=== PATIENT | male | born 1980 | race Caucasian/White ===

== ENCOUNTER 2016-11-21 07:17 | Emergency (ER) | payer BC ==
[2016-11-21 07:32] VITALS: BP 130/75
--- NOTE | 2016-11-21 07:46 | UC ---
Throat Pain/Nasal Keanu HPI - HPI Summary HPI Summary: sore throat x 3 days + nasal congestion, cough, pnd , sinus pressure no fever, no chills - History of Current Complaint Chief Complaint: UCRespiratory Stated Complaint: SINUS COMPLAINT Time Seen by Provider: 11/21/16 07:37 Hx Obtained From: Patient Onset/Duration: Gradual Onset, Lasting Days - 3, Still Present Severity: Moderate Cough: Nonproductive Associated Signs & Symptoms: Positive: Sinus Discomfort, Nasal Discharge. Negative: Wheezing, Fever, Vomiting, Rash - Allergies/Home Medications Allergies/Adverse Reactions: Allergies Allergy/AdvReac Type Severity Reaction Status Date / Time No Known Allergies Allergy Verified 11/21/16 07:26 Home Medications: Home Medications NK [No Home Medications Reported] 11/21/16 [History Confirmed 11/21/16] PMH/Surg Hx/FS Hx/Imm Hx Previously Healthy: Yes - Surgical History Surgical History: None - Family History Known Family History: Negative: Diabetes - Social History Alcohol Use: Occasionally Alcohol Amount: 1xmonth Substance Use Type: None Smoking Status (MU): Never Smoked Tobacco - Immunization History Most Recent Influenza Vaccination: NONE Most Recent Tetanus Shot: UTD Most Recent Pneumonia Vaccination: NONE Review of Systems Constitutional: Negative Skin: Negative Eyes: Negative ENT: Sore Throat, Ear Ache, Nasal Discharge Respiratory: Cough Cardiovascular: Negative Gastrointestinal: Negative All Other Systems Reviewed And Are Negative: Yes Physical Exam Triage Information Reviewed: Yes Appearance: Well-Appearing, No Pain Distress, Well-Nourished Vital Signs: Initial Vital Signs Temp 97.4 F 11/21/16 07:27 Pulse 65 11/21/16 07:27 Resp 16 11/21/16 07:27 BP 130/75 11/21/16 07:27 Pulse Ox 98 11/21/16 07:27 Vital Signs Reviewed: Yes Eyes: Positive: Conjunctiva Clear ENT: Positive: Normal ENT inspection, Hearing grossly normal, Pharyngeal erythema, Nasal congestion, Nasal drainage, TMs normal Neck: Positive: Supple, Nontender, No Lymphadenopathy Respiratory: Positive: Chest non-tender, Lungs clear, Normal breath sounds Cardiovascular: Positive: RRR, No Murmur, Pulses Normal Abdominal Exam: Normal Skin Exam: Normal Throat Pain/Nasal Course/Dx - Differential Dx/Diagnosis Provider Diagnoses: uri Discharge - Discharge Plan Condition: Stable Disposition: HOME Patient Education Materials: Upper Respiratory Infection (ED) Forms: *Work Release
== END 2016-11-21 07:46 | disposition home or self-care (01) ==
LOC: UCCORT 07:17
DX: J06.9 Acute upper respiratory infection, unspecified (principal)
CPT/HCPCS: 99201; G0463

== ENCOUNTER 2017-11-26 11:03 | Emergency (ER) | payer BC ==
[2017-11-26 11:51] VITALS: BP 139/72
--- NOTE | 2017-11-26 12:26 | UC ---
Complaint Male HPI - HPI Summary HPI Summary: 36 yo male with 2-2 1/2 week hx of left LQ /groin and flank pain the pain has been constant and waxes and wane pain radiates to left testicle at times was examined by his MD early this month and nothing abnormal found no n/v/d no urethral d/c no f/c no change in bowel habits - History of Current Complaint Chief Complaint: UCGU Stated Complaint: URINARY COMP Time Seen by Provider: 11/26/17 12:12 Hx Obtained From: Patient Onset/Duration: Gradual Onset, Lasting Weeks Timing: Constant Severity Initially: Mild Severity Currently: Moderate Pain Intensity: 5 Pain Scale Used: 0-10 Numeric Location: Groin - LL Radiates to: LLQ abd/Left flank/left testicle Character: Colicy Aggravating Factor(s): Nothing Alleviating Factor(s): Other Associated Signs And Symptoms: Negative: Dysuria - but urinary frequency and urgency - Risk Factors Testicular Torsion: Negative - Allergies/Home Medications Allergies/Adverse Reactions: Allergies Allergy/AdvReac Type Severity Reaction Status Date / Time No Known Allergies Allergy Verified 11/21/16 07:26 PMH/Surg Hx/FS Hx/Imm Hx Previously Healthy: Yes - Surgical History Surgical History: Yes Surgery Procedure, Year, and Place: EAR SURGERY A CHILD - Family History Known Family History: Positive: Other - no fhx kidney stones or diverticulitis Negative: Diabetes - Social History Alcohol Use: Occasionally Alcohol Amount: 1xmonth Substance Use Type: None Smoking Status (MU): Never Smoked Tobacco - Immunization History Most Recent Influenza Vaccination: NONE Most Recent Tetanus Shot: UTD Most Recent Pneumonia Vaccination: NONE Review of Systems Constitutional: Negative Skin: Negative Eyes: Negative ENT: Negative Respiratory: Negative Cardiovascular: Negative Gastrointestinal: Abdominal Pain Genitourinary: Frequency, Urgency Motor: Negative Neurovascular: Negative Musculoskeletal: Negative Neurological: Negative Psychological: Negative Is Patient Immunocompromised?: No All Other Systems Reviewed And Are Negative: Yes Physical Exam Triage Information Reviewed: Yes Appearance: Well-Appearing, No Pain Distress, Well-Nourished Vital Signs: Initial Vital Signs Temp 98.4 F 11/26/17 11:44 Pulse 63 11/26/17 11:44 Resp 15 11/26/17 11:44 BP 139/72 11/26/17 11:44 Pulse Ox 98 11/26/17 11:44 Vital Signs Reviewed: Yes Eyes: Positive: Conjunctiva Clear ENT: Positive: Hearing grossly normal. Negative: Nasal drainage, TMs normal, Trismus, Muffled voice Neck: Positive: Supple, Nontender, No Lymphadenopathy Respiratory: Positive: Lungs clear, Normal breath sounds, No respiratory distress, No accessory muscle use Cardiovascular: Positive: RRR, No Murmur Abdomen Description: Positive: Soft. Negative: Nontender - lefter LLQ, CVA Tenderness (R), CVA Tenderness (L), Hernia @, Hepatomegaly Bowel Sounds: Positive: Present Male Genital Exam: Positive: Normal Genitalia - un circ, No Hernia. Negative: Epididymal Tenderness, Scrotum Tenderness (R), Scrotum Tenderness (L), Testicular Tenderness (R), Testicular Tenderness (L), Urethral Discharge Musculoskeletal: Positive: ROM Intact, No Edema Neurological: Positive: Alert Psychological Exam: Normal Skin Exam: Normal Diagnostics - Radiology No standard instances Xray Interpretation: Positive (See Comments) - 0.4 CM DISTAL LEFT URETERAL STONE WITH MILD HYDRONEPHROSIS Radiology Interpretation Completed By: Radiologist Complaint Male Course/Dx - Differential Dx/Diagnosis Provider Diagnoses: left urolithiasis (near left LVJ Discharge - Sign-Out/Discharge Documenting (check all that apply): Discharge/Admit/Transfer - Discharge Plan Condition: Stable Disposition: HOME Patient Education Materials: Kidney Stones (ED) Forms: *Work Release Referrals: Non Staff,Doctor [Primary Care Provider] - 3 Days Additional Instructions: strain urine save stone if passed see your MD this week if stone fails to pass you will need to see a urologist to ER for fever severe unremitting pain vomiting - Billing Disposition and Condition Condition: STABLE Disposition: HOME
--- NOTE | 2017-11-26 12:52 | RAD ---
CLINICAL HISTORY: Left flank pain for 2 weeks COMPARISON: None TECHNIQUE: Multiple contiguous axial CT scans were obtained of the abdomen and pelvis, without intravenous contrast enhancement. Coronal and sagittal multiplanar reformations are submitted for review. Oral contrast was not administered. FINDINGS: LUNG BASES: The lung bases are clear. LIVER: The liver is normal in shape, size, contour, and attenuation. BILE DUCTS: There is no intrahepatic or extrahepatic biliary dilatation. GALLBLADDER: The gallbladder is normal, without pericholecystic inflammatory change. PANCREAS: The pancreas is normal, without mass or ductal dilatation. SPLEEN: Normal in size and appearance. UPPER GI TRACT: Evaluation of the gastrointestinal tract is limited by incomplete gastric distention. The upper GI tract is unremarkable. SMALL BOWEL AND MESENTERY: The small bowel is normal in contour, course, and caliber. There is no obstruction or dilatation. COLON: The colon is normal in contour, course, caliber. There is no pericolonic inflammatory change. ADRENALS: Normal bilaterally. KIDNEYS: There is a 0.4 cm calculus of the distal left ureter, just proximal to the UVJ with mild pelvic caliectasis and hydroureter. There is stranding of the fat along the distal ureter. BLADDER: The bladder is smooth in contour. PELVIC ORGANS: The prostate gland is normal. The seminal vesicles are symmetric. AORTA: The aorta is normal. IVC: Unremarkable LYMPH NODES: There is no lymphadenopathy by size criteria. ABDOMINAL WALL: There is no evidence for abdominal wall hernia. BONES AND SOFT TISSUES: The bones and soft tissues are unremarkable. OTHER: Dystrophic calcification is noted within the mesenteric FAT along the anterior pelvis. IMPRESSION: 0.4 CM DISTAL LEFT URETERAL STONE WITH MILD HYDRONEPHROSIS
== END 2017-11-26 13:14 | disposition home or self-care (01) ==
LOC: UCCORT 11:03
DX: N20.9 Urinary calculus, unspecified (principal)
CPT/HCPCS: 74176; 81003; 99212; G0463